=== PATIENT | male | born 1945 | race Caucasian/White ===

== ENCOUNTER → 2017-07-16 | Day surgery (SDC) | payer OTHER ==
[~2017-07-16] MED LIST: AMLO5TAB22 PO; APREPITANT 40 MG CAP ONE; ASPI81TA82 PO; ATOR40TA PO; CHOL50006 PO; DEXAMETHASONE SOD PHOS 4 MG/ML VIAL ONE; DIAZ5 PO; EPINEPHrine HCL (1:1000) 1 MG/ML VIAL ONE; EPIP0.3I IM; FAMO1TAB36; LACTATED RINGER'S 1000 ML INJ 1,000 ML ONE; LISI-360 PO; MAGN250T13 PO; MEDR4PAK3 PO; MIDAZOLAM HCL 2 MG/2 ML VIAL ONE; MOXIFLOXACIN 0.5% OPHT SOLN 3 ML BTL ONE; OMEP20TA PO; PHENYLEPHRINE HCL 10% OPTH SOLN 5 ML BTL ONE; PROPOFOL 100 MG/10 ML INJ IV ONE; SODIUM CHLORIDE 0.9% INJ 10 ML ONE; TAMS0.4C67 PO; TETRACAINE 0.5% OPTH SOLN 15 ML BTL ONE; TOBRAMYCIN/DEXAMETHASONE OPTH OINT 3.5 GM TUBE ONE; TRIAMCINOLONE ACETONIDE 40 MG/ML VIAL ONE; UROCTAB3 PO; VITA100017 PO; [UNRECOGNIZED DRUG - CODE]; [UNRECOGNIZED DRUG - CODE] PO; ceFAZolin INJ 1,000 MG VIAL ONE; prednisoLONE ACETATE 1% OPHT SUSP 5 ML BTL ONE
== END | disposition home or self-care (01) ==
LOC: ESDC 12:49
PROVIDERS: ATTEND Ophthalmology
DX: H33.052 Total retinal detachment, left eye (principal)
CPT/HCPCS: 00145; 67108; J0171; J0690; J1100; J2250; J3010; J7120; J8501; J3301

== ENCOUNTER → 2017-08-31 | Day surgery (SDC) | payer OTHER ==
[~2017-08-31] MED LIST changes: -APREPITANT 40 MG CAP ONE; +MORPHINE SULFATE 2 MG/ML INJ ONE; +ONDANSETRON HCL 4 MG/2 ML VIAL IV PUSH ONE; -PROPOFOL 100 MG/10 ML INJ IV ONE; +PROPOFOL 200 MG/20 ML AMP IV ONE; +TOBRAMYCIN 0.3%/DEXAMETHASONE 0.1% OPHT SUSP 5 ML BTL ONE; -TRIAMCINOLONE ACETONIDE 40 MG/ML VIAL ONE
--- NOTE | 2017-09-06 15:48 | MP ---
cc: Hilario Perez MD DATE OF OPERATION: 08/31/2017 PREOPERATIVE DIAGNOSIS: Recurrent retinal detachment, left eye. PREOPERATIVE DIAGNOSIS: Retinal detachment, retinal tear, vitreous hemorrhage, left eye. PROCEDURE PERFORMED: Pars plano vitrectomy, endolaser retinal detachment repair, air fluid exchange, insertion of 15% C3F8 gas, insertion of scleral buckle, left eye. COMPLICATIONS: None. ESTIMATED BLOOD LOSS: Less than 1 milliliter. ANESTHESIA: Dr. Sanchez, general. INDICATIONS FOR PROCEDURE: This is a delightful patient who presented with a recurrent retinal detachment of his left eye. The patient elected for surgical correction. PROCEDURE NOTE: After informed consent was obtained, the patient was brought to the operating room, general anesthesia was established. The left eye was prepped and draped in sterile fashion. Betadine in the conjunctiva fornix. A 3 port pars plana vitrectomy was established with self-containing infusion cannula. PFO was instilled and retina reattached. A new retinal break was identified since previous repair. An incision was made to place a scleral buckle. Her recti muscles were isolated with 2-0 silk. A 42 encircling band was placed and sutured in each quadrant with 5-0 [place]. A 72 sleeve was placed in the superotemporal quadrant. Tension on the band was adjusted to support the vitreous space and new retinal tear. Attention was again paid to vitrectomy. Endolaser was applied surrounding the retinal tear, which was now supported by the scleral buckle. Air fluid exchange was carried out and retina remained nicely attached. A 15% C3F8 gas was instilled. Trocar was removed and sclerotomy was closed. Conjunctiva was reapproximated with 6-0 plain gut. Subconjunctival injections of Ancef and dexamethasone were given. The eye was patched with TobraDex ointment. The patient was brought to the recovery room in stable condition and continue followup with [facility] for his postoperative care. MD [place] Zimmer/LARRY , 10:16 PM , 11:47 PM
== END | disposition home or self-care (01) ==
LOC: ESDC 08:33
PROVIDERS: ATTEND Ophthalmology
DX: H33.012 Retinal detachment with single break, left eye (principal); H43.12 Vitreous hemorrhage, left eye
CPT/HCPCS: 00145; 67113; J0171; J0690; J1100; J2250; J2270; J2405; J3010; J7120

== ENCOUNTER → 2017-10-12 | Day surgery (SDC) | payer OTHER ==
[~2017-10-12] MED LIST changes: +ACETAMINOPHEN 325 MG TAB ONE; +BALANCED SALT SOLN OPHT IRRIG 15 ML BTL ONE; -MORPHINE SULFATE 2 MG/ML INJ ONE; -TETRACAINE 0.5% OPTH SOLN 15 ML BTL ONE; +TETRACAINE 0.5% OPTH SOLN 4 ML BTL ONE; -TOBRAMYCIN 0.3%/DEXAMETHASONE 0.1% OPHT SUSP 5 ML BTL ONE; +acetaZOLAMIDE SEQUELS 500 MG SUSTAINED RELEASE CAP ONE
--- NOTE | 2017-10-21 12:16 | MP ---
cc: Hilario Perez MD DATE OF OPERATION: 10/12/2017 PREOPERATIVE DIAGNOSIS: Retinal detachment, dense cataract, left eye. POSTOPERATIVE DIAGNOSIS: Retinal detachment, dense cataract, left eye. PROCEDURE PERFORMED: Pars plana vitrectomy, phacoemulsification, cataract extraction with intraocular lens placement, retinal detachment repair, endolaser, insertion of 5000 centistoke silicone oil, left eye. ANESTHESIA: Dr. Monroe general. ESTIMATED BLOOD LOSS: Less than 1 mL. COMPLICATIONS: None. INDICATIONS FOR PROCEDURE: This is delightful patient presented with a recurrent retinal detachment of his left eye. The patient was previously treated for a first superior retinal tear and detachment, followed by an inferior new tear and detachment. Since previous surgery, his cataract has worsened, preventing adequate visualization of the posterior pole. The patient elected for cataract extraction with intraocular lens placement simultaneously with retinal detachment repair. The patient understands the risks, benefits, alternatives and wished to proceed with surgery. The patient understands the risk of peripheral proliferative vitreal retinopathy, recurrent retinal detachment and loss of vision. PROCEDURE NOTE: After informed consent was carried out, the patient was brought to the operating room and general anesthesia was established. The left eye was prepped and draped in sterile fashion, Betadine in the conjunctival fornix. A 3 port pars plana vitrectomy was established with self-retaining infusion cannula. Intraocular gas was removed. Attention was then paid to the cataract for removal. The anterior capsule was stained with Trypan Blue. The anterior chamber was then filled with viscoelastic. A 2.75 clear corneal incision was made with a keratome. Capsulorrhexis was completed using capsulorrhexis forceps. The lens was hydrodissected and rotated freely in the capsule. The lens was removed with Phacoemulsification and divided in fashion. Irrigation, aspiration removed remaining cortex. The intraocular lens [id number] 18.0 diopter power was inserted into the ciliary sulcus. The intraocular lens appeared quite stable. The corneoscleral incision was closed with 10-0 nylon suture. Attention was redirected to the posterior pole and retinal detachment. PFO was instilled and subretinal fluid removed. The retina was nicely reattached. A temporal area of traction and peripheral hole was noted. The temporal traction was removed with the vitrector. Endolaser was applied surrounding the temporal hole and reinforcing previous repairs. A air fluid exchange was carried out and the retina remained nicely attached. 5000 centistoke silicone oil was instilled. An inferior peripheral iridectomy was made with the vitrector. Trocars removed and sclerotomies closed with 7-0 Vicryl suture. The Viscoelastic was removed from the anterior chamber with irrigation. Subconjunctival injection of Ancef and dexamethasone were given. The eye was patched with tobramycin ointment. The patient was brought to recovery room in stable condition and continue to followup with [facility] for his postoperative care. MD [place] Zimmer/LARRY , 08:52 PM , 09:18 PM
== END | disposition home or self-care (01) ==
LOC: ESDC 09:01
PROVIDERS: ATTEND Ophthalmology
DX: H33.022 Retinal detachment with multiple breaks, left eye (principal); H26.9 Unspecified cataract
CPT/HCPCS: 00142; 00145; 66984; 67108; C1814; J0171; J0690; J1100; J2250; J2405; J3010; J7120; V2632

== ENCOUNTER 2017-12-02 05:59 | Emergency (ER) | payer OTHER ==
[~2017-12-02 05:59] MED LIST changes: -ACETAMINOPHEN 325 MG TAB ONE; -BALANCED SALT SOLN OPHT IRRIG 15 ML BTL ONE; -DEXAMETHASONE SOD PHOS 4 MG/ML VIAL ONE; -EPINEPHrine HCL (1:1000) 1 MG/ML VIAL ONE; -LACTATED RINGER'S 1000 ML INJ 1,000 ML ONE; -MIDAZOLAM HCL 2 MG/2 ML VIAL ONE; -MOXIFLOXACIN 0.5% OPHT SOLN 3 ML BTL ONE; -ONDANSETRON HCL 4 MG/2 ML VIAL IV PUSH ONE; -PHENYLEPHRINE HCL 10% OPTH SOLN 5 ML BTL ONE; -PROPOFOL 200 MG/20 ML AMP IV ONE; -SODIUM CHLORIDE 0.9% INJ 10 ML ONE; -TETRACAINE 0.5% OPTH SOLN 4 ML BTL ONE; -TOBRAMYCIN/DEXAMETHASONE OPTH OINT 3.5 GM TUBE ONE; -acetaZOLAMIDE SEQUELS 500 MG SUSTAINED RELEASE CAP ONE; -ceFAZolin INJ 1,000 MG VIAL ONE; -prednisoLONE ACETATE 1% OPHT SUSP 5 ML BTL ONE
[2017-12-02 06:03] VITALS: BP 171/80; PULSE 71; RESP 18; TEMP 98.2; O2SAT 95
[2017-12-02] MEDS ORDERED: ATOR40TA16 PO (06:25)
[2017-12-02] MEDS ORDERED: OMEP20TA93 PO (06:25)
[2017-12-02] MEDS ORDERED: POTA10CA PO (06:25)
[2017-12-02] MEDS ORDERED: TAMS0.4C4 (06:25)
[2017-12-02] MEDS ORDERED: ASPI-516 CHEW (06:25)
[2017-12-02] MEDS ORDERED: MAGN250T11 PO (06:25)
[2017-12-02] MEDS ORDERED: AMLO2.5T PO (06:25)
[2017-12-02] MEDS ORDERED: LORazepam 2 MG/ML VIAL IV PUSH PRN (06:30)
[2017-12-02] MEDS ORDERED: DEXAMETHASONE SOD PHOS 20 MG/5 ML VIAL IV ONE (06:30)
[2017-12-02] MEDS ORDERED: traMADol HCL 50 MG TAB PO ONE (06:30)
[2017-12-02] MEDS ORDERED: PRED50 PO (06:36)
[2017-12-02] MEDS ORDERED: TRAM50TA PO (06:36)
[2017-12-02] MEDS ORDERED: DIAZ5 PO (06:36)
--- NOTE | 2017-12-02 06:37 | PD ---
HPI . Neck pain Chief Complaint: Back/ Neck Pain or Injury Time Seen by Provider: 06:16 Travel History International Travel<30 days: No Contact w/Intl Traveler<30days: No Traveled to known affect area: No History of Present Illness HPI Patient presents with chief complaint of neck pain. Onset was about 2 days ago. It is acutely worse this morning. It is located on the left side of his neck. He reports no associated radicular type symptoms such as pain, numbness or weakness in his arm. Pain is exacerbated by extending the neck and relieved by flexing the neck. Pain is rated 10/10. The patient reports a previous history of cervical radiculopathy which has been treated with steroid injections, traction and massage therapy. He states that he has not had any problems with his neck and quite some time. He has had recent surgery for retinal detachment. He has been required to sleep with his face in a doughnut pillow. He believes that this may have caused his current episode of neck pain. PFSH Past Medical History Hx Anticoagulant Therapy: Yes (164 mg asa) Arthritis: Yes Asthma: No Autoimmune Disease: No Blood Disorders: No Anxiety: No Depression: Yes (SUICIDE IDEATION 30 YRS AGO) Heart Rhythm Problems: No Cancer: Yes (COLON 2010 , PROSTRATE CANCER RADIATION [place] ) Cardiac Catheterization: Yes (2005) High Cholesterol: Yes Chest Pain: Yes Congestive Heart Failure: No COPD: No Cerebrovascular Accident: No Coronary Artery Disease: Yes Diabetes: No Diminished Hearing: No Endocrine: No Gastrointestinal Disorders: Yes GERD: Yes Glaucoma: No Genitourinary: No Headaches: Yes Hepatitis: No Hiatal Hernia: No Hypertension: Yes Immune Disorder: No Kidney Stones: Yes Musculoskeletal: Yes (BACK PAIN) Neurologic: Yes Psychiatric: No Reproductive: No Respiratory: No Immunizations Current: Yes Myocardial Infarction: No Radiation Therapy: Yes Renal Failure: No Seizures: No Sickle Cell Disease: No Sleep Apnea: No Thyroid Disease: No Ulcer: Yes (PEPTIC BLDG ULCER - 2004 & 1963) Tetanus Vaccination: < 5 Years Influenza Vaccination: Yes PNEUMOCCOCAL Vaccine (Year): 2 Past Surgical History Abdominal Aneurysm Repair: Yes (LITHOTRIPSY X 3, KIDNEY AND BLADDER STONE REMOVAL.) Abdominal Surgery: Yes (PART OF COLON REMOVED DUE TO COLON CA) AICD: No Cardiac Surgery: Yes (STENT PLACEMENT 1999) Coronary Artery Bypass Graft: Yes Coronary Stent: Yes (X 3) Ear Surgery: No Endocrine Surgery: No Eye Surgery: No Genitourinary Surgery: Yes (LITHOTRIPSY, BLADDER SURGERY TO REMOVED KIDNEY STONES) Gynecologic Surgery: No Insulin Pump: No Joint Replacement: No Neurologic Surgery: No Oral Surgery: No Pacemaker: No Thoracic Surgery: No Other Surgery: Yes (ADHESIONS FROM COLOECTOMY) Social History Alcohol Use: Yes (OCC) Tobacco Use: No (20 YEARWS AGO) Substance Use: No Allergies-Medications (Allergen,Severity, Reaction): Coded Allergies: codeine (Unverified Allergy, Severe, 12/02/17) NAUSEA AND VOMITING hydromorphone (Unverified Allergy, Severe, Nausea/Vomiting, 12/02/17) meperidine (Unverified Allergy, Severe, 12/02/17) morphine (Unverified Allergy, Severe, Nausea/Vomiting, 12/02/17) naproxen (Unverified Allergy, Severe, throat swells, 12/02/17) Reported Meds & Prescriptions Reported Meds & Active Scripts Active Valium (Diazepam) 5 Mg Tab 5 Mg PO TID PRN Prednisone 50 Mg Tab 50 Mg PO DAILY Tramadol (Tramadol HCl) 50 Mg Tab 50 Mg PO Q4H PRN Reported Tamsulosin (Tamsulosin HCl) 0.4 Mg Cap 0.4 Mg HS Omeprazole 20 Mg Tab 20 Mg PO DAILY Potassium Chloride ER (Potassium Chloride) 10 Meq Cap 10 Meq PO DAILY Magnesium Oxide 250 Mg Tab 250 Mg PO DIRECTED Atorvastatin (Atorvastatin Calcium) 40 Mg Tab 40 Mg PO HS Amlodipine (Amlodipine Besylate) 2.5 Mg Tab 2.5 Mg PO DAILY Aspirin 81 Mg Chew 81 Mg CHEW DAILY Review of Systems Except as stated in HPI: all other systems reviewed are Neg Physical Exam Narrative GENERAL: Awake and alert. He looks uncomfortable. SKIN: Warm and dry. Normal color and turgor. HEAD: Normocephalic/atraumatic. NECK: He is holding his neck in a flexed position. He has some tenderness in the left paraspinous area of the neck. RESPIRATORY: Nonlabored respirations. MUSCULOSKELETAL: Atraumatic. NEUROLOGICAL: Nonfocal. Normal motor and sensory function of the upper extremities. PSYCHIATRIC: Appropriate mood and affect. Data Data Last Documented VS Vital Signs Date Time Temp Pulse Resp B/P (MAP) Pulse Ox O2 Delivery O2 Flow Rate FiO2 12/02/17 06:03 98.2 71 18 171/80 (110) 95 Orders Orders Lorazepam Inj (Ativan Inj) (12/02/17 06:30) Dexamethasone Inj (Decadron Inj) (12/02/17 06:30) Tramadol (Ultram) (12/02/17 06:30) ^ Saline Lock (12/02/17 06:16) MDM Medical Decision Making Medical Screen Exam Complete: Yes Emergency Medical Condition: Yes Differential Diagnosis Differential diagnosis of neck pain includes but is not limited to muscle spasm/ pain, arthritis, spinal stenosis, HNP, epidural abscess Narrative Course This patient presents for the treatment of acute left neck pain. He does not have any neurological symptoms. He has tenderness to palpation on the left side of his neck. He is allergic to both nonsteroidal anti-inflammatory agents and opiates. I am treating his pain with IV Ativan for spasm, Decadron for inflammation and oral tramadol. He has had tramadol in the past with no ill effects. His care is being turned over to the oncoming provider pending response to treatment. Diagnosis Primary Impression: Neck pain Patient Instructions: Acute Neck Pain (ED), General Instructions Med/Other Pt SpecificInfo: Prescription(s) given Scripts Diazepam (Valium) 5 Mg Tab 5 MG PO TID Y for muscle spasm, #15 TAB 0 Refills Prov: Tram Simental MD 12/02/17 Prednisone (Prednisone) 50 Mg Tab 50 MG PO DAILY, #5 TAB 0 Refills Prov: Tram Simental MD 12/02/17 Tramadol (Tramadol) 50 Mg Tab 50 MG PO Q4H Y for PAIN, #12 TAB 0 Refills Prov: Tram Simental MD 12/02/17 Disposition: 01 DISCHARGE HOME Condition: Stable Tram Simental MD December 02, 2017 06:36
[2017-12-02 07:03] VITALS: BP 151/66
== END 2017-12-02 07:27 | disposition home or self-care (01) ==
LOC: PHED 05:59
DX: M54.2 Cervicalgia (principal); I10 Essential (primary) hypertension; F32.9 Major depressive disorder, single episode, unspecified; E78.00 Pure hypercholesterolemia, unspecified; I25.10 Atherosclerotic heart disease of native coronary artery without angina pectoris; K21.9 Gastro-esophageal reflux disease without esophagitis; Z85.038 Personal history of other malignant neoplasm of large intestine; Z85.46 Personal history of malignant neoplasm of prostate; Z95.1 Presence of aortocoronary bypass graft; Z87.891 Personal history of nicotine dependence
CPT/HCPCS: 96374; 96375; 99284; J1100; J2060

== ENCOUNTER 2017-12-02 12:05 | Emergency (ER) | payer OTHER ==
[~2017-12-02] VITALS: Ht 170.2 cm; Wt 81.5 kg
[~2017-12-02 12:05] MED LIST changes: +AMLO2.5T PO; +ASPI-516 CHEW; +ATOR40TA16 PO; +MAGN250T11 PO; +OMEP20TA93 PO; +POTA10CA PO; +PRED50 PO; +TAMS0.4C4; +TRAM50TA PO
[2017-12-02 12:09] VITALS: BP 165/91; PULSE 97; RESP 20; TEMP 97.8; O2SAT 96
[2017-12-02] MEDS ORDERED: DIAZEPAM 5 MG TAB PO ONE (15:15)
[2017-12-02] MEDS ORDERED: traMADol HCL 50 MG TAB PO ONE (15:15)
--- NOTE | 2017-12-02 15:25 | PD ---
HPI Chief Complaint: Back/ Neck Pain or Injury Time Seen by Provider: 14:49 Travel History International Travel<30 days: No Contact w/Intl Traveler<30days: No Traveled to known affect area: No History of Present Illness HPI Patient presents to the emergency department complaint of neck pain. He was seen at [place] this morning for the same symptoms and given 2 mg Ativan IV , 10 mg Decadron IV, and tramadol 50 mg p.o. He was discharged prednisone 50 mg daily 5 days, tramadol 50 mg every 4 hours as needed, and Valium 5 mg 3 times daily as needed. Did not get the medication filled. The pain has been present for week but increased in severity yesterday. Pain is described as an 8 out of 10, constant, nonradiating. States that he has had 3 eye surgeries and has to keep his head down secondary to the surgeries and he believes that this is aggravating the neck pain. He denies trauma, numbness, tingling, headache, fever, chills, vomiting, but reports nausea. PFSH Past Medical History Hx Anticoagulant Therapy: Yes (164 mg asa) Arthritis: Yes Asthma: No Autoimmune Disease: No Blood Disorders: No Anxiety: No Depression: Yes (SUICIDE IDEATION 30 YRS AGO) Heart Rhythm Problems: No Cancer: Yes (COLON 2010 , PROSTRATE CANCER RADIATION [place] ) Cardiac Catheterization: Yes (2005) High Cholesterol: Yes Chest Pain: Yes Congestive Heart Failure: No COPD: No Cerebrovascular Accident: No Coronary Artery Disease: Yes Diabetes: No Diminished Hearing: No Endocrine: No Gastrointestinal Disorders: Yes GERD: Yes Glaucoma: No Genitourinary: No Headaches: Yes Hepatitis: No Hiatal Hernia: No Hypertension: Yes Immune Disorder: No Kidney Stones: Yes Musculoskeletal: Yes (BACK PAIN) Neurologic: Yes Psychiatric: No Reproductive: No Respiratory: No Immunizations Current: Yes Myocardial Infarction: No Radiation Therapy: Yes Renal Failure: No Seizures: No Sickle Cell Disease: No Sleep Apnea: No Thyroid Disease: No Ulcer: Yes (PEPTIC BLDG ULCER - 2003 & 1962) PNEUMOCCOCAL Vaccine (Year): 2 Past Surgical History Abdominal Aneurysm Repair: Yes (LITHOTRIPSY X 3, KIDNEY AND BLADDER STONE REMOVAL.) Abdominal Surgery: Yes (PART OF COLON REMOVED DUE TO COLON CA) AICD: No Cardiac Surgery: Yes (STENT PLACEMENT 1999) Coronary Artery Bypass Graft: Yes Coronary Stent: Yes (X 3) Ear Surgery: No Endocrine Surgery: No Eye Surgery: No Genitourinary Surgery: Yes (LITHOTRIPSY, BLADDER SURGERY TO REMOVED KIDNEY STONES) Gynecologic Surgery: No Insulin Pump: No Joint Replacement: No Neurologic Surgery: No Oral Surgery: No Pacemaker: No Thoracic Surgery: No Other Surgery: Yes (ADHESIONS FROM COLOECTOMY) Social History Alcohol Use: Yes (OCC) Tobacco Use: No (20 YEARWS AGO) Substance Use: No Allergies-Medications (Allergen,Severity, Reaction): Coded Allergies: codeine (Verified Allergy, Severe, 12/02/17) NAUSEA AND VOMITING hydromorphone (Verified Allergy, Severe, Nausea/Vomiting, 12/02/17) meperidine (Verified Allergy, Severe, 12/02/17) morphine (Verified Allergy, Severe, Nausea/Vomiting, 12/02/17) naproxen (Verified Allergy, Severe, throat swells, 12/02/17) Reported Meds & Prescriptions Reported Meds & Active Scripts Active Valium (Diazepam) 5 Mg Tab 5 Mg PO TID PRN Prednisone 50 Mg Tab 50 Mg PO DAILY Tramadol (Tramadol HCl) 50 Mg Tab 50 Mg PO Q4H PRN Reported Tamsulosin (Tamsulosin HCl) 0.4 Mg Cap 0.4 Mg HS Omeprazole 20 Mg Tab 20 Mg PO DAILY Potassium Chloride ER (Potassium Chloride) 10 Meq Cap 10 Meq PO DAILY Magnesium Oxide 250 Mg Tab 250 Mg PO DIRECTED Atorvastatin (Atorvastatin Calcium) 40 Mg Tab 40 Mg PO HS Amlodipine (Amlodipine Besylate) 2.5 Mg Tab 2.5 Mg PO DAILY Aspirin 81 Mg Chew 81 Mg CHEW DAILY Review of Systems Except as stated in HPI: all other systems reviewed are Neg Physical Exam Narrative GENERAL: Positive discomfort, patient holding his head down SKIN: Focused skin assessment warm/dry. HEAD: Atraumatic. Normocephalic. EYES: Pupils equal and round. No scleral icterus. No injection or drainage. ENT: No nasal bleeding or discharge. Mucous membranes pink and moist. NECK: Trachea midline. No JVD. No focal C-spine tenderness, patient has left paraspinous tenderness. CARDIOVASCULAR: Regular rate and rhythm. No murmur appreciated. RESPIRATORY: No accessory muscle use. Clear to auscultation. Breath sounds equal bilaterally. GASTROINTESTINAL: Abdomen soft, non-tender, nondistended. MUSCULOSKELETAL: No obvious deformities. No clubbing. No cyanosis. No edema. No T, L-spine tenderness to palpation. 5 out of 5 bilateral upper extremity strength. NEUROLOGICAL: Awake and alert. No obvious cranial nerve deficits. Motor grossly within normal limits. Normal speech. PSYCHIATRIC: Appropriate mood and affect; insight and judgment normal. Data Data Last Documented VS Vital Signs Date Time Temp Pulse Resp B/P (MAP) Pulse Ox O2 Delivery O2 Flow Rate FiO2 12/02/17 12:09 97.8 97 20 165/91 (115) 96 Orders Orders Tramadol (Ultram) (12/02/17 15:15) Diazepam (Valium) (12/02/17 15:15) Spine, Cervical Compl([id number]) (12/02/17 15:07) [facility] Medical Decision Making Medical Screen Exam Complete: Yes Emergency Medical Condition: Yes Interpretation(s) FINDINGS: AP, lateral and oblique views of the cervical spine were obtained as well as odontoid views. There are mild degenerative disc changes with slight disc space narrowing and hypertrophic change. There is no acute fracture or malalignment. There is diffuse osteopenia. The dens is intact. Mild degenerative changes noted involving the uncovertebral joints. The prevertebral soft tissues are within normal limits. CONCLUSION: 1. Mild degenerative disc change. 2. Mild degenerative joint changes. 3. Osteopenia. Differential Diagnosis C-spine fracture, dislocation, muscle spasm, OA/DDD Narrative Course Patient presents to the emergency department complaining of neck pain. He was seen a [place] this morning. He is afebrile, slightly hypertensive at 165/ 91, remaining vital signs stable. Will get C-spine x-ray and give Valium 5 mg p.o. and 50 mg tramadol.\ 1557: Patient back from x-ray is able to hold his head up and reports feeling somewhat better. Awaiting official x-ray results. 1625: Discussed x-ray results with patient. He feels better and is able to hold his head up. He has an appointment scheduled with his primary care doctor on Wednesday for follow-up. Will discharge patient. Diagnosis Primary Impression: Neck pain Patient Instructions: Acute Neck Pain (ED), General Instructions Additional Instructions: 1. Follow-up with doctor's appointment on Wednesday. 2. Take medications that were prescribed from [place] emergency department this morning. 3. Return to the ER immediately for fever, vomiting, numbness, tingling, or any new/ worrisome/worsening symptoms. Disposition: 01 DISCHARGE HOME Condition: Stable Amaya Barbosa MD December 02, 2017 15:25
--- NOTE | 2017-12-02 16:17 | RADRPT ---
EXAM DATE: 12/02/2017 4:04 PM EDT AGE/SEX: 72 years / Male INDICATIONS: No known injury. Pain for five days. Patient unable to lift head and straighten neck. CLINICAL DATA: This is the patient's initial encounter. Patient reports that signs and symptoms have been present for 4 - 6 days and indicates a pain score of 9/10. MEDICAL/SURGICAL HISTORY: None. CABG. COMPARISON: No prior [place] exams available for comparison. FINDINGS: AP, lateral and oblique views of the cervical spine were obtained as well as odontoid views. There ar e mild degenerative disc changes with slight disc space narrowing and hypertrophic change. There is n o acute fracture or malalignment. There is diffuse osteopenia. The dens is intact. Mild degenerative changes noted involving the uncovertebral joints. The prevertebral soft tissues are within normal buckley its. CONCLUSION: 1. Mild degenerative disc change. 2. Mild degenerative joint changes. 3. Osteopenia. Electronically signed by: Bob Mills MD 12/02/2017 4:16 PM EDT
[2017-12-02 17:21] VITALS: BP 145/78
== END 2017-12-02 17:39 | disposition home or self-care (01) ==
LOC: NEPD 12:05
DX: M54.2 Cervicalgia (principal); E78.00 Pure hypercholesterolemia, unspecified; I10 Essential (primary) hypertension; K21.9 Gastro-esophageal reflux disease without esophagitis; Z87.891 Personal history of nicotine dependence
CPT/HCPCS: 72050; 99283

== ENCOUNTER 2018-05-01 16:56 | Observation (INO) ==
[2018-05-01 17:41] VITALS: TEMP 98
[2018-05-01] MEDS ORDERED: Sod Chloride 0.9% Inj 1,000 ML IV.SIG SCH (18:00)
[2018-05-01 18:31] VITALS: BP 149/72; PULSE 76; RESP 18; O2SAT 96
[2018-05-01 18:39] LABS: Baso # (Auto) 0.1 th/mm3 (0.0-0.2); Baso % (Auto) 0.8 % (0.0-2.0); Eos # (Auto) 0.3 th/mm3 (0.0-0.4); Eos % (Auto) 3.7 % (0.0-4.0); Hematocrit 39.3 % (39.0-51.0); Hemoglobin 13.8 gm/dL (13.0-17.0); Lymph # (Auto) 2.3 th/mm3 (1.0-4.8); Mean Corpuscular Hemoglobin 31.9 pg (27.0-34.0); Mean Corpuscular Volume 91.1 fL (80.0-100.0); Mean Platelet Volume 7.3 fL (7.0-11.0); Mono # (Auto) 0.9 th/mm3 (0.0-0.9); Mono % (Auto) 11.3 % (0.0-8.0); Neut # (Auto) 4.3 th/mm3 (1.8-7.7); Neut % (Auto) 55.2 % (16.0-70.0); Platelet Count 313 th/mm3 (150-450); Red Blood Count 4.32 mil/mm3 (4.50-5.90); Red Cell Distribution Width 13.8 % (11.6-17.2); White Blood Count 7.8 th/mm3 (4.0-11.0)
[2018-05-01] MEDS ORDERED: Morphine Sulfate Inj 2 MG/ML Vial IV.PUSH ONE (18:46)
[2018-05-01] MEDS ORDERED: MethylPREDNISolone Sod Succinate Inj 125 MG/2 ML Vial IV.PUSH ONE (18:57)
[2018-05-01 19:00] LABS: Bilirubin,Urine Negative (Negative); Clarity,Urine Clear (Clear); Color,Urine Colorless (Yellw/Straw); Glucose,Urine (UA) Negative (Negative); Leukocyte Esterase,Urine Negative (Negative); Nitrite,Urine Negative (Negative); Specific Gravity,Urine 1.001 (1.002-1.035)
[2018-05-01 19:08] LABS: Alanine Aminotransferase 28 U/L (12-78); Albumin 3.8 g/dL (3.4-5.0); Anion Gap 8 meq/L (5-15); Aspartate Aminotransferase 19 U/L (15-37); Blood Urea Nitrogen 13 mg/dL (7-18); Carbon Dioxide 24.3 meq/L (21.0-32.0); Chloride 109 meq/L (98-107); Glomerular Filtration Rate Greater Than 89 mL/min (>89); Glucose,Random 96 mg/dL (74-106); Potassium 4.1 meq/L (3.5-5.1); Sodium 141 meq/L (136-145)
[2018-05-01 19:10] LABS: Alkaline Phosphatase 77 U/L (45-117); Total Protein 7.4 g/dL (6.4-8.2)
--- NOTE | 2018-05-01 19:26 | CT ---
EXAM DATE: 05/01/2018 7:19 PM EDT AGE/SEX: 72 years / Male INDICATIONS: Right flank pain. CLINICAL DATA: This is the patient's initial encounter. Patient reports that signs and symptoms have been present for 1 day and indicates a pain score of 6/10. MEDICAL/SURGICAL HISTORY: Cardiovascular disease. Hypertension. Renal calculi. GERD Coronar y artery stent. RADIATION DOSE: 10.97 CTDI (mGy) COMPARISON: [facility], CT ABDOMEN & PELVIS W/O CONTRAST, 04/27/2012. . TECHNIQUE: Multiple contiguous axial images were obtained through the abdomen. Images were obtained using multiple row detector helical technique. Using automated exposure control and adjustment of the mA and/or kV according to patient size, radiation dose was kept as low as reasonably achievable to o btain optimal diagnostic quality images. DICOM format image data is available electronically for rev iew and comparison. FINDINGS: Lung bases demonstrate some minimal scarring and calcified granuloma in the left lower lobe. There ar e numerous right-sided renal calculi measuring up to 6.5 mm in the upper pole and 5 mm in the lower p ole in addition to several other tiny right renal calculi. Tiny 1 mm left renal calculus at the midpo le. There is no hydronephrosis or evidence for obstructive uropathy. No acute findings in the liver, spleen, adrenals or pancreas. No free fluid. No bowel obstruction. No adenopathy. There is a bowel containing right inguinal hernia without evidence for obstruction. This is similar t o 2011 exam. There is mild constipation. Postsurgical changes noted in the rectosigmoid. 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 CONCLUSION: 1. Multiple right-sided renal calculi without hydronephrosis or evidence for obstructive uropathy 2. Mild constipation. 3. Right inguinal hernia containing bowel without evidence for obstruction, similar to 2012. 4. Radiation seed implants in the prostate. Electronically signed by: Andi Vee MD 05/01/2018 7:24 PM EDT
--- NOTE | 2018-05-01 19:36 | ED ---
HPI General Chief complaint: Abdominal Pain Stated complaint: poss kidney stone R side Time Seen by Provider: 05/01/18 17:53 Source: patient and family Mode of arrival: ambulatory Limitations: no limitations History of Present Illness HPI narrative: Patient is a 72-year-old male presenting to the emergency department for evaluation of right flank pain. Patient states it started yesterday. He reports that he has a history of kidney stones and his pain is consistent with that. He denies any nausea, vomiting, fever, chills, abdominal pain. He reports that he has a hard time starting his stream. He does have a history of prostate cancer with radiation seed implant. Patient reports his pain is currently a 5 out of 10, constant, aching. Patient states he presented to the emergency department before it got any worse. Past medical history significant for hypertension, hyperlipidemia, prostate cancer, kidney stones. Related Data Home Medications Medication Instructions Recorded Confirmed amlodipine 2.5 mg PO DAILY 05/01/18 05/01/18 ascorbic acid (vitamin C) [Vitamin 500 mg PO BID 05/01/18 05/01/18 C] aspirin [Aspirin Low Dose] 162 mg PO DAILY 05/01/18 05/01/18 atorvastatin 40 mg PO DAILY 05/01/18 05/01/18 cholecalciferol (vitamin D3) 5,000 unit PO DAILY 05/01/18 05/01/18 [Vitamin D3] magnesium 200 mg PO DAILY 05/01/18 05/01/18 dmoyiucqzstm-jyjtywkm-dhsxro 1 tab PO DAILY 05/01/18 05/01/18 [Multivitamin 50 Plus] potassium chloride 10 meq PO DAILY 05/01/18 05/01/18 vitamin E 1,000 unit PO DAILY 05/01/18 05/01/18 Allergies Allergy/AdvReac Type Severity Reaction Status Date / Time codeine Allergy Severe Verified 12/02/17 12:09 hydromorphone Allergy Severe Nausea/Vomi Verified 12/02/17 12:09 ting meperidine Allergy Severe Verified 12/02/17 12:09 morphine Allergy Severe Nausea/Vomi Verified 12/02/17 12:09 ting naproxen Allergy Severe throat Verified 12/02/17 12:09 savannahlls Review of Systems ROS: all other systems reviewed are negative [facility] Medical History Medical History FH: CABG (coronary artery bypass surgery) (Acute) GERD (gastroesophageal reflux disease) (Acute) Hypercholesteremia (Acute) Hypertension (Acute) Kidney stone (Acute) Surgical History Surgical History H/O heart artery stent (Acute) Hx of CABG (Acute) Social History Social History Substance History: No History of Abuse Smoking Status: Former smoker How Often Do You Have a Drink Containing Alcohol: 2 to 4 times a month Recent Travel in [facility] within the Last 8 Weeks: No Recent Out of Country Travel within the Last 8 Weeks: No Immunization History Tetanus Immunization: <5 Years Exam Narrative Exam Narrative: GENERAL: Well-developed, well-nourished, well-appearing elderly male. Presenting in no acute distress. SKIN: Focused skin assessment warm/dry. HEAD: Atraumatic. Normocephalic. EYES: Pupils equal and round. No scleral icterus. No injection or drainage. ENT: No nasal bleeding or discharge. Mucous membranes pink and moist. NECK: Trachea midline. No JVD. CARDIOVASCULAR: Regular rate and rhythm. No murmur appreciated. RESPIRATORY: No accessory muscle use. Clear to auscultation. Breath sounds equal bilaterally. GASTROINTESTINAL: Abdomen soft, non-tender, nondistended. Hepatic and splenic margins not palpable. No CVAT bilaterally, no rebound, no guarding. Positive bowel sounds. MUSCULOSKELETAL: No obvious deformities. No clubbing. No cyanosis. No edema. NEUROLOGICAL: Awake and alert. No obvious cranial nerve deficits. Motor grossly within normal limits. Normal speech. PSYCHIATRIC: Appropriate mood and affect; insight and judgment normal. Course Initial Documented Vital Signs Temperature 98.0 F 05/01/18 17:39 Pulse Rate 81 05/01/18 17:39 Respiratory Rate 20 05/01/18 17:39 Blood Pressure 144/71 H 05/01/18 17:39 Pulse Oximetry 97 05/01/18 17:39 Last Documented Vital Signs Temperature 98.0 F 05/01/18 17:39 Pulse Rate 76 05/01/18 18:00 Respiratory Rate 18 05/01/18 18:00 Blood Pressure 149/72 H 05/01/18 18:00 Pulse Oximetry 96 05/01/18 18:00 Medical Decision Making [facility] Narrative Medical decision making narrative: Patient is well-appearing 72-year-old male presenting with 1 day of right flank pain. Labs and imaging ordered and pending. Patient was given morphine and Zofran for pain. He was also given a liter of IV fluids. Labs reviewed, no acute findings. CT scan of the abdomen and pelvis shows multiple right-sided renal calculi. No hydronephrosis. Due to size of stone pt will be admitted under obs. Pt is followed by Dr. Amanda as OP, discussed this with Dr. Patrick. Admit orders placed. Pt and spouse agreeable. Ordered percocet and tamsulosin. Pt has allergy to naproxen so toradol was not given. Medical Screen Exam Complete: Yes Emergency Medical Condition: Yes Differential Diagnosis Differential Diagnosis: Kidney stone versus urinary tract infection versus muscular skeletal strain versus other Medical Records Medical records reviewed: Yes I reviewed the patient's medical records. Lab Data Lab results reviewed: Yes I reviewed the patient's lab results. Result diagrams: 05/01/18 18:15 05/01/18 18:15 Lab Results 05/01/18 05/01/18 05/01/18 Range/Units 18:15 18:15 18:15 WBC 7.8 (4.0-11.0) th/mm3 RBC 4.32 L (4.50-5.90) mil/mm3 Hgb 13.8 (13.0-17.0) gm/dL Hct 39.3 (39.0-51.0) % MCV 91.1 (80.0-100.0) fL MCH 31.9 (27.0-34.0) pg MCHC 35.0 (32.0-36.0) % RDW 13.8 (11.6-17.2) % Plt Count 313 (150-450) th/mm3 MPV 7.3 (7.0-11.0) fL Neut % (Auto) 55.2 (16.0-70.0) % Lymph % (Auto) 29.0 (9.0-44.0) % [place] % (Auto) 11.3 H (0.0-8.0) % Eos % (Auto) 3.7 (0.0-4.0) % Baso % (Auto) 0.8 (0.0-2.0) % Neut # (Auto) 4.3 (1.8-7.7) th/mm3 Lymph # (Auto) 2.3 (1.0-4.8) th/mm3 [place] # (Auto) 0.9 (0.0-0.9) th/mm3 Eos # (Auto) 0.3 (0.0-0.4) th/mm3 Baso # (Auto) 0.1 (0.0-0.2) th/mm3 WBC Differential . Differential Comment Auto diff final Sodium 141 (136-145) meq/L Potassium 4.1 (3.5-5.1) meq/L Chloride 109 H (98-107) meq/L Carbon Dioxide 24.3 (21.0-32.0) meq/L Anion Gap 8 (5-15) meq/L BUN 13 (7-18) mg/dL Creatinine 0.79 (0.60-1.30) mg/dL Estimated GFR Greater than 89 (>89) mL/min Random Glucose 96 (74-106) mg/dL Calcium 9.0 (8.5-10.1) mg/dL Total Bilirubin 0.4 (0.2-1.0) mg/dL AST 19 (15-37) U/L ALT 28 (12-78) U/L Alkaline Phosphatase 77 (45-117) U/L Total Protein 7.4 (6.4-8.2) g/dL Albumin 3.8 (3.4-5.0) g/dL Urine Color Colorless (Yellw/Straw) Urine Clarity Clear (Clear) Urine pH 8.0 (5.0-8.5) Ur Specific [place] 1.001 L (1.002-1.035) Urine Protein Negative (Neg-Trace) mg/dL Urine Glucose (UA) Negative (Negative) mg/dL Urine Ketones Negative (Negative) mg/dL Urine Occult Blood Negative (Negative) Urine Nitrate Negative (Negative) Urine Bilirubin Negative (Negative) Urine Urobilinogen Less than 2 (Less than 2) mg/dL Ur Leukocyte Esterase Negative (Negative) Micro UA Comment Culture not ind Ur Microscopic Review Not Reportable Urine Culture Comments Culture not ind Imaging Data Radiologist's impression: Abdomen/Pelvis CT 05/01/18 17:53 CONCLUSION: 1. Multiple right-sided renal calculi without hydronephrosis or evidence for obstructive uropathy 2. Mild constipation. 3. Right inguinal hernia containing bowel without evidence for obstruction, similar to 2012. 4. Radiation seed implants in the prostate. Discharge Plan Discharge Disposition Patient Disposition: 01 Discharge Home Discharge Condition Condition: Good Discharge Order Discharge Orders: Discharge Order (Routine); Ordered 05/01/18 Ordered By: Stanley Spence Discharge Details Diagnosis: Kidney stone on right side Physicians Team ED Provider: Regino Lerner ED Midlevel Provider: Laurie Delgado Primary Care Provider: Brandon Joshi Attending Provider: Thor Patrick Other Providers: Gerardo Carrillo ; Rafa Silva Status ED Status: Left Department Discharge Information Discharge Date/Time: 05/01/18 22:07
[2018-05-01] MEDS ORDERED: Bisacodyl 10 MG Supp RECTAL PRN (20:23)
[2018-05-01] MEDS ORDERED: oxyCODONE/Acetaminophen 10/325 Tablet PO PRN (20:28)
[2018-05-01] MEDS ORDERED: Morphine Inj 4 MG/ML Vial IV.PUSH PRN (20:28)
[2018-05-01] MEDS ORDERED: Naloxone Inj 0.4 MG/ML Vial IV.PUSH PRN (20:28)
[2018-05-01] MEDS ORDERED: Sod Chloride 0.9% Inj 1,000 ML IV.CONT SCH (20:30)
[2018-05-02] MEDS ORDERED: Magnesium Oxide 400 MG Tablet PO SCH (09:00)
[2018-05-02] MEDS ORDERED: Non-Formulary Drug (Amlodipine [Amlodipine] 2.5 MG) PO SCH (09:00)
[2018-05-02] MEDS ORDERED: amLODIPine 5 MG Tablet PO SCH (09:00)
== END 2018-05-01 21:46 | disposition home or self-care (01) ==
LOC: NEDA 16:56 → NEPC 16:56 → NEDA 22:07
PROVIDERS: ADMIT Internal Medicine; ATTEND Internal Medicine